=== PATIENT | male | born 1965 | race Asian ===

== ENCOUNTER → 2017-04-09 | Outpatient (CLI) | payer BC ==
[~2017-04-09] MED LIST: CARB15DR48 LEFT EAR; CIPR500T4 PO; COLC0.6T6 PO; IBUP-1542 PO; IBUP800T25 PO; NPH10OT LEFT EAR; PHEN-547 PO; PRED20TA PO
--- NOTE | 2017-04-09 16:13 | RADRPT ---
PROCEDURE: XR Lumbar Spine. CLINICAL INDICATION: Back pain. TECHNIQUE: Three views. AP, lateral and cone-down lateral view of the lumbar spine were obtained. COMPARISON: No prior studies are available for comparison. FINDINGS: There is normal stature and alignment of the vertebrae. There is no fracture. There is no lytic or blastic lesion. There are degenerative changes with osteophytes throughout. The disk height is normal. Vascular calcifications are present consistent with atherosclerosis. IMPRESSION: 1. Mild degenerative change. 2. Atherosclerosis. 3. No acute abnormality. RPTAT: QQ .Wily Austin MD, MD Date Time Electronically viewed and signed by .Wily Austin MD, on 04/09/2017 16:12 .R/
== END | disposition home or self-care (01) ==
LOC: RAD 13:56
PROVIDERS: ATTEND Internal Medicine
DX: M47.896 Other spondylosis, lumbar region (principal)
CPT/HCPCS: 72100

== ENCOUNTER → 2018-11-23 | Outpatient (CLI) | END | disposition home or self-care (01) ==

== ENCOUNTER → 2019-01-27 | Outpatient (CLI) | payer BC ==
[~2019-01-27] MED LIST changes: -CARB15DR48 LEFT EAR; +CARB15DR50 LEFT EAR; -IBUP800T25 PO; +IBUP800T48 PO
== END | disposition home or self-care (01) ==
LOC: LAB 13:08
PROVIDERS: ATTEND Internal Medicine
DX: E03.9 Hypothyroidism, unspecified (principal); D64.9 Anemia, unspecified
CPT/HCPCS: 71046; 80053; 84436; 84443; 85025; 85651